=== PATIENT | female | born 1955 | race Two or more races ===

== ENCOUNTER 2018-04-30 15:40 | Emergency (ER) | payer MEDICAID ==
[~2018-04-30] VITALS: Ht 160 cm; Wt 50.3 kg
[2018-04-30] MEDS ORDERED: traMADol 50 MG TABLET PO ONE (16:00)
[2018-04-30] MEDS ORDERED: CLINDAMYCIN HCL 150 MG CAPSULE. PO ONE (16:00)
--- NOTE | 2018-04-30 16:01 | PHYS DOC ---
Adult General Chief Complaint Chief Complaint: DENTAL PROBLEM HPI HPI Patient is a 62 year old F who presents with lower dental pain x 2 weeks. [place] and [place] not sure where to go for dental help. Discussed some resource options and will provide with names. Review of Systems Review of Systems Constitutional: Denies fever or chills Eyes: Denies change in visual acuity, redness, or eye pain HENT: Denies nasal congestion or sore throat. Reports dental pain Respiratory: Denies cough or shortness of breath Cardiovascular: Denies chest pain. GI: Denies abdominal pain, nausea, vomiting, bloody stools or diarrhea Musculoskeletal: Denies back pain or joint pain Integument: Denies rash or skin lesions Neurologic: Denies headache, focal weakness or sensory changes All other systems were reviewed and found to be within normal limits, except as documented in this note. Current Medications Current Medications Current Medications Medications (Trade) Dose Ordered Sig/Allen Start Time Stop Time Status Last Admin Dose Admin Clindamycin HCl (Cleocin) 300 mg 1X ONCE 04/30/18 16:00 04/30/18 16:01 DC 04/30/18 16:13 300 MG Tramadol HCl (Ultram) 100 mg 1X ONCE 04/30/18 16:00 04/30/18 16:01 DC 04/30/18 16:13 100 MG Allergies Allergies Allergies Coded Allergies Type Severity Reaction Last Updated Verified Penicillins Allergy Intermediate Rash 04/30/18 Yes diphenhydramine Allergy Intermediate RASH 04/30/18 Yes Physical Exam Physical Exam Constitutional: Well developed, well nourished, no acute distress, non-toxic appearance. HENT: Normocephalic, atraumatic, bilateral external ears normal, oropharynx moist, no oral exudates, nose normal. Widespread dental decay with only a few teeth remaining. Lower front tooth carious and tender to palpation with no abscess noted. Neck: Normal range of motion, no tenderness, supple, no stridor. Cardiovascular:Heart rate regular rhythm, no murmur Lungs & Thorax: Bilateral breath sounds clear to auscultation Abdomen: Bowel sounds normal, soft, no tenderness, no masses, no pulsatile masses. Skin: Warm, dry, no erythema, no rash. Back: No tenderness, no CVA tenderness. Extremities: No tenderness, no cyanosis, no clubbing, ROM intact, no edema. Neurologic: Alert and oriented X 3, normal motor function, normal sensory function, no focal deficits noted. Psychologic: Affect normal, judgement normal, mood normal. Current Patient Data Vital Signs Vital Signs Date Time Temp Pulse Resp B/P (MAP) Pulse Ox O2 Delivery O2 Flow Rate FiO2 04/30/18 16:03 98.5 90 16 144/63 (90) 95 Room Air 98.5 EKG EKG [] Radiology/Procedures Radiology/Procedures [] Course & Med Decision Making Course & Med Decision Making Pertinent Labs and Imaging studies reviewed. (See chart for details) Pt provided with list of local dental resources. She asked for me to pull the tooth out and I explained that I am not a dentist and the ER cannot perform oral surgery and she will need to see dentist and she voices understanding. No signs of toxicity. Oral hygeine encouraged. Pt to return if symptoms worsen at anytime. Dragon Disclaimer Dragon Disclaimer This electronic medical record was generated, in whole or in part, using a voice recognition dictation system. Departure Departure Impression: Primary Impression: Pain due to dental caries Disposition: HOME, SELF-CARE Condition: STABLE Referrals: NON,STAFF (PCP) JOHNNY HUNTER MD Patient Instructions: Dental Pain, [id number] Scripts Tramadol Hcl (TRAMADOL HCL) 50 Mg Tablet 50 MG PO Q6HRS PRN for PAIN for 5 Days, #14 TAB Prov: JACLYN OCASIO 04/30/18 Clindamycin Hcl (CLINDAMYCIN HCL) 150 Mg Capsule 1 CAP PO TID, #30 CAP Prov: JACLYN OCASIO 04/30/18 JACLYN OCASIO Apr 30, 2018 16:01
[2018-04-30 16:03] VITALS: BP 144/63
[2018-04-30] MEDS ORDERED: CLIN150C14 PO (16:04)
[2018-04-30] MEDS ORDERED: TRAM50TA PO (16:04)
== END 2018-04-30 16:15 | disposition home or self-care (01) ==
LOC: ER 15:40
DX: K02.9 Dental caries, unspecified (principal); K08.89 Other specified disorders of teeth and supporting structures; Z88.0 Allergy status to penicillin; Z88.5 Allergy status to narcotic agent
CPT/HCPCS: 99283